=== PATIENT | male | born 1975 | race Caucasian/White ===

== ENCOUNTER 2021-08-25 12:29 | Emergency (ER) | payer OTHER, SELFPAY ==
[2021-08-25 12:34] VITALS: BP 128/72; PULSE 90; RESP 14; TEMP 36.6; O2SAT 95; BMI 32.5
--- NOTE | 2021-08-25 14:37 | ED.ABDPAIN ---
HPI - Abdominal Pain General Chief Complaint: Abdominal Pain Stated Complaint: Rt Sided Abd Pain,HX Kidney Stones Time Seen by Provider: 08/25/21 14:37 Source: patient Mode of arrival: Ambulatory History of Present Illness HPI narrative: 46M daily smoker with a history of smoking and kidney stones presents with a chief complaint of 2 days of right-sided flank pain that wraps around his right side and into his right groin. He states that it has episodes of worsening pain without any obvious provocation or palliation. He denies any nausea, vomiting or diarrhea. He denies any urinary complaints such as dysuria, frequency, urgency or hematuria. He states this feels similar to prior kidney stones. Related Data Previous Rx's Medication Instructions Recorded hydrocodone 5 mg-acetaminophen 325 1 tab PO Q4-6H PRN #10 tab 08/25/21 mg tablet ketorolac 10 mg tablet 10 mg PO Q6H PRN #14 tab 08/25/21 ondansetron 4 mg disintegrating 4 mg PO TID-QID PRN #10 tab 08/25/21 tablet tamsulosin 0.4 mg capsule (Flomax) 0.4 mg PO DAILY #10 cap 08/25/21 Allergies Allergy/AdvReac Type Severity Reaction Status Date / Time No Known Drug Allergies Allergy Verified 08/25/21 12:34 Review of Systems Review of Systems Narrative: GENERAL: Denies chills, fatigue, malaise, fever, sweats. HEENT: Denies sinus pain, ear pain, sore throat, difficulty swallowing, dizziness. RESPIRATORY: Denies dyspnea, cough, wheezing, hemoptysis, sputum. CARDIOVASCULAR: Denies chest pain, palpitations, orthopnea, edema, GASTROINTESTINAL: Denies nausea, vomiting, abdominal pain, diarrhea, constipation, melena. : See HPI MUSCULOSKELETAL: denies weakness, joint pain, or bony pain SKIN: Denies rash, skin lesions, or other NEUROLOGIC: Denies weakness, headache, numbness, change in speech, confusion, seizures, incoordination. PSYCHIATRIC: No concerning psychosocial issues. 12 point review of systems is negative except for those stated above Patient History Social History Smoking Status: Current every day smoker Smoking Status: Current every day smoker alcohol intake frequency: holidays/special occasions only Substance Use Type: does not use Exam Narrative Exam Narrative: GENERAL: [46 year old patient appears stated age. Well-developed patient, in mild distress. HEAD: Atraumatic. Normocephalic. EYES: Pupils equal round and reactive. Extraocular motions intact. No scleral icterus. No injection or drainage. ENT: Nose without bleeding, purulent drainage. Throat without erythema, tonsillar hypertrophy or exudate. Airway patent. NECK: Trachea midline. Non tender CARDIOVASCULAR: Regular rate and rhythm without murmurs, gallops, or rubs. RESPIRATORY: Clear to auscultation. Breath sounds equal bilaterally. No wheezes, rales, or rhonchi. GASTROINTESTINAL: Abdomen soft, non-tender, nondistended. EXTREMITIES: No edema or joint tenderness. BACK: Nontender without deformity or crepitance. No flank tenderness. NEURO: AOx3. SKIN: No rash or erythema of visible areas Initial Vital Signs Initial Vital Signs: Vital Signs Temperature 97.8 F 08/25/21 12:34 Pulse Rate 90 08/25/21 12:34 Respiratory Rate 14 08/25/21 12:34 Blood Pressure 128/72 08/25/21 12:34 Pulse Oximetry 95 08/25/21 12:34 Course Orders Ordered: ED Orders 08/25/21 14:43 BMP [Basic Metabolic Panel] Stat CBC Auto Diff [Complete Blood Count AUTO DIFF] Stat Sodium Chloride (Normal Saline 0.9%) 1,000 mls @ 1,000 mls/hr IV BOLUS ONE Stop: 08/25/21 16:11 Last Admin: 08/25/21 15:20 Dose: 1,000 mls/hr Documented by: VICTORIANO Discontinued Medications Ketorolac Tromethamine (Ketorolac 30 Mg/Ml Vial) 15 mg IV NOW ONE Stop: 08/25/21 15:13 Last Admin: 08/25/21 15:20 Dose: 15 mg Documented by: VICTORIANO Vital Signs Vital signs: Vital Signs - 8 hr 08/25/21 12:34 Temperature 97.8 F Pulse Rate 90 Respiratory Rate 14 Blood Pressure 128/72 Pulse Oximetry 95 MDM - Abdominal Pain Lab Data Result diagrams: 08/25/21 14:43 08/25/21 14:43 Labs: Lab Results 08/25/21 08/25/21 Range/Units 14:43 14:43 WBC 14.9 H (4.5-11.0) X10^3/uL RBC 5.00 (4.5-5.9) X10^6/uL Hgb 15.0 (13.5-17.5) g/dL Hct 43.8 (41-53) % MCV 87.6 (80-100) fL MCH 30.0 (26-34) PG MCHC 34.3 (30-36) % RDW 13.4 (11.6-14.8) % Plt Count 311 (150-400) X10^3/uL Neut % (Auto) 60.1 (50-75) % Lymph % (Auto) 29.9 (25-40) % [place] % (Auto) 6.3 (3-14) % Eos % (Auto) 2.6 (2-4) % Baso % (Auto) 1.1 (0-2) % Neut # (Auto) 9000 H (7607-4938) /uL Lymph # (Auto) 4400 (8086-5647) /uL [place] # (Auto) 900 (0-900) /uL Eos # (Auto) 400 (0-450) /uL Baso # (Auto) 200 H (0-100) /uL Sodium 139 (137-145) mmol/L Potassium 4.4 (3.4-5.1) mmol/L Chloride 107 (98-107) mmol/L Carbon Dioxide 26 (22-32) mmol/L BUN 11 (9-20) mg/dL Creatinine 0.98 (0.66-1.25) mg/dL Estimated GFR > 60.0 (>60) mL/min BUN/Creatinine Ratio 11.2 (6-22) Glucose 103 H (70-100) mg/dL Calcium 9.6 (8.4-10.2) mg/dL Point of care testing: Urine Dip Bedside Urine Glucose Negative Bedside Urine Bilirubin - Negative Bedside Urine Ketone - Negative Urine Specific [place] 1.030 Bedside Urine Occult Blood - Negative Bedside Urine pH 6.0 Bedside Urine Protein - Negative Bedside Urine Urobilinogen +/- 1mg Bedside Urine Nitrite - Negative Bedside Urine Leukocytes - Negative Esterase MDM Narrative Medical decision making narrative: Patient with reassuring history and physical exam. He has a significant improvement in symptoms with above-stated therapies. Urine shows no sign of infection. Patient had a sudden onset colicky type right flank pain consistent with what prior kidney stones of felt like. He has no reproducible pain, specifically non in the right upper quadrant or right lower quadrant. Other diagnoses such as gallbladder disease and appendicitis considered but thought less likely given the lack of reproducibility, nausea, vomiting and near complete resolution of symptoms with above-stated therapies. Patient given return precautions and questions have been answered to his apparent satisfaction Discharge Plan Departure Patient Disposition: Home Clinical Impression: Acute flank pain Instructions: DI for Kidney Stones Activity Restrictions/Additional Instructions: *You have been diagnosed with [right flank pain, most consistent with kidney stone. Your response to therapies, history, physical exam and labs are very reassuring. There is no indication for imaging today, nor any indication of the need for antibiotics. *What to do: *Please continue to take your regular medications as directed. [x ] New medication prescriptions sent to your pharmacy: [ [facility] in [place]] [ ] New medication written as a paper prescription [ ] No new medications given *Please follow up with your primary care provider in 2-3 days, call for an appointment. Let them know you were seen in the Emergency Department and that we ask that you be seen in follow up. We will electronically transmit a record of today's note if your PCP is in our system *If you do not have a primary care provider please contact the [facility] Resource line at [phone]. They will ask some questions about your medical history and help get you set up with a doctor in the community. *Return to Emergency Department if you should have any new, worsening or concerning symptoms, such as [fever greater than 101 F, shaking chills, worsening pain, persistent vomiting or other bothersome symptoms] Prescriptions: New hydrocodone-acetaminophen 5-325 mg tablet 1 tab PO Q4-6H PRN (Reason: pain) Qty: 10 0RF ketorolac 10 mg tablet 10 mg PO Q6H PRN (Reason: pain) Qty: 14 0RF tamsulosin [Flomax] 0.4 mg capsule 0.4 mg PO DAILY Qty: 10 0RF ondansetron 4 mg tablet,disintegrating 4 mg PO TID-QID PRN (Reason: nausea and vomiting) Qty: 10 0RF
[2021-08-25] MEDS: SODIUM CHLORIDE 0.9% 1,000 ML 1000 ML IV (15:20)
[2021-08-25] MEDS: KETOROLAC 30 MG/ML VIAL 15 MG IV (15:20)
[2021-08-25 15:43] LABS: Add Manual Diff / Slide Review NO; Basophils Absolute Auto 200 /uL (0-100); Basophils Percent Auto 1.1 % (0-2); Eosinophils Absolute Auto 400 /uL (0-450); Eosinophils Percent Auto 2.6 % (2-4); Hematocrit 43.8 % (41-53); Lymphocytes Absolute Auto 4400 /uL (1100-4500); Lymphocytes Percent Auto 29.9 % (25-40); Mean Corpuscular HGB Conc 34.3 % (30-36); Mean Corpuscular Volume 87.6 fL (80-100); Monocytes Absolute Auto 900 /uL (0-900); Monocytes Percent Auto 6.3 % (3-14); Neutrophils Absolute Auto 9000 /uL (1500-7000); Neutrophils Percent Auto 60.1 % (50-75); Platelet Count 311 X10^3/uL (150-400); Red Cell Distribution Width 13.4 % (11.6-14.8); White Blood Cell Count 14.9 X10^3/uL (4.5-11.0)
[2021-08-25 15:48] LABS: BUN Creatinine Ratio 11.2 (6-22); Blood Urea Nitrogen 11 mg/dL (9-20); Calcium 9.6 mg/dL (8.4-10.2); Carbon Dioxide 26 mmol/L (22-32); Chloride 107 mmol/L (98-107); Estimated Glomerular Filt Rate > 60.0 mL/min (>60); Glucose 103 mg/dL (70-100); HEMOLYSIS < 15 (0-50); Potassium 4.4 mmol/L (3.4-5.1); Sodium 139 mmol/L (137-145)
[2021-08-25 16:05] VITALS: BP 116/74; PULSE 74; RESP 16; O2SAT 98
== END 2021-08-25 16:07 | disposition home or self-care (01) ==
PROVIDERS: Emergency Provider Emergency Medicine
DX: R10.9 Unspecified abdominal pain (principal); F17.200 Nicotine dependence, unspecified, uncomplicated
CPT/HCPCS: 80048; 81003; 85025; 96374; 99283; 99284; J1885

== ENCOUNTER → 2023-02-28 07:39 | Outpatient (CLI) | payer OTHER, SELFPAY ==
[2023-02-28 08:34] LABS: Add Manual Diff / Slide Review NO; Basophils Absolute Auto 100 /uL (0-100); Basophils Percent Auto 0.8 % (0-2); Eosinophils Absolute Auto 300 /uL (0-450); Eosinophils Percent Auto 2.5 % (2-4); Hematocrit 42.2 % (41-53); Hemoglobin 14.7 g/dL (13.5-17.5); Lymphocytes Absolute Auto 4200 /uL (1100-4500); Lymphocytes Percent Auto 32.7 % (25-40); Mean Corpuscular HGB Conc 34.8 % (30-36); Mean Corpuscular Hemoglobin 29.8 PG (26-34); Mean Corpuscular Volume 85.8 fL (80-100); Monocytes Absolute Auto 800 /uL (0-900); Monocytes Percent Auto 6.4 % (3-14); Neutrophils Absolute Auto 7300 /uL (1500-7000); Neutrophils Percent Auto 57.6 % (50-75); Platelet Count 293 X10^3/uL (150-400); Red Blood Cell Count 4.92 X10^6/uL (4.5-5.9); Red Cell Distribution Width 13.3 % (11.6-14.8); White Blood Cell Count 12.8 X10^3/uL (4.5-11.0)
[2023-02-28 08:47] LABS: Alanine Aminotransferase 30 IU/L (<50); Albumin 4.5 g/dL (3.5-5.0); Albumin Globulin Ratio 1.7 (1.0-2.8); Alkaline Phosphatase 64 U/L (38-126); Aspartate Aminotransferase 20 IU/L (17-59); BUN Creatinine Ratio 16.5 (6-22); Bilirubin Total 0.3 mg/dL (0.2-1.3); Blood Urea Nitrogen 16 mg/dL (9-20); Calcium 9.8 mg/dL (8.4-10.2); Carbon Dioxide 23 mmol/L (22-32); Chloride 108 mmol/L (98-107); Cholesterol 255 mg/dL (140-199); Estimated Glomerular Filt Rate > 60 mL/min (>60); Globulin 2.7 g/dL (1.7-4.1); Glucose 101 mg/dL (70-100); HDL Cholesterol 35 mg/dL (40-60); HEMOLYSIS < 15 (0-50); LDL Cholesterol Calculated 148 mg/dL (<100); Potassium 4.7 mmol/L (3.4-5.1); Sodium 140 mmol/L (137-145); Total Protein 7.2 g/dL (6.3-8.2); Triglycerides 358 mg/dL (35-150)
[2023-02-28 09:08] LABS: TSH w/ Reflex to FT4 1.58 uIU/mL (0.47-4.68)
== END ==
PROVIDERS: PCP Family Medicine; Referring Provider Family Medicine; Visit Provider Family Medicine
DX: F17.200 Nicotine dependence, unspecified, uncomplicated (principal); N20.0 Calculus of kidney; Z13.1 Encounter for screening for diabetes mellitus; Z13.9 Encounter for screening, unspecified; Z13.6 Encounter for screening for cardiovascular disorders
CPT/HCPCS: 36415; 80053; 80061; 84443; 85025

== ENCOUNTER 2023-03-08 16:07 | Emergency (ER) | payer OTHER, SELFPAY ==
[2023-03-08 16:17] VITALS: BP 130/77; PULSE 72; RESP 18; TEMP 36.7; O2SAT 98; BMI 34.7
--- NOTE | 2023-03-08 16:46 | ED_ITS ---
HPI - Male Genitourinary General Chief complaint: Urogenital-Male Stated complaint: right hand side kidney pain Time Seen by Provider: 03/08/23 16:23 Source: patient Mode of arrival: Ambulatory History of Present Illness HPI Narrative: This is a 47-year-old male presents emergency department due to right kidney pain for the last couple of days. Pain increases with walking and decreases when he lays down. Reports urinary frequency. Patient denies any urinary urgency, , dysuria, hematuria, or any other concerning signs or symptoms. Does not recall any acute injuries to the area. States it feels similar to an episode he had had approximately a year ago which eventually self-resolved. Related Data Previous Rx's Medication Instructions Recorded sildenafil 100 mg tablet 100 mg PO DAILY PRN sexual 09/11/22 activity #30 tabs bupropion HCl 200 mg tablet,12 hr 200 mg PO DAILY #90 ea 02/26/23 sustained-release risperidone 1 mg tablet 1 mg PO DAILY PRN schizophrenia 02/26/23 #60 tabs risperidone 4 mg tablet 4 mg PO DAILY #90 tabs 02/26/23 nitrofurantoin 100 mg PO Q12H 5 days #10 caps 03/08/23 monohydrate/macrocrystals 100 mg capsule (Macrobid) Allergies Allergy/AdvReac Type Severity Reaction Status Date / Time Opioids - Morphine Analogues Allergy Verified 03/08/23 16:17 Review of Systems Review of Systems Narrative: GENERAL: Denies chills, fatigue, malaise, fever, sweats. HEENT: Denies sinus pain, ear pain, sore throat, difficulty swallowing, dizziness. RESPIRATORY: Denies dyspnea, cough, wheezing, hemoptysis, sputum. CARDIOVASCULAR: Denies chest pain, palpitations, orthopnea, edema, GASTROINTESTINAL: Denies nausea, vomiting, abdominal pain, diarrhea, constipation, melena. : Denies dysuria, frequency, incontinence, hematuria, urinary retention. MUSCULOSKELETAL: Right flank pain, denies weakness, joint pain, or bony pain SKIN: Denies rash, skin lesions, or other NEUROLOGIC: Denies weakness, headache, numbness, change in speech, confusion, seizures, incoordination. PSYCHIATRIC: No concerning psychosocial issues. 12 point review of systems is negative except for those stated above Patient History Medical History (Updated 03/08/23 @ 17:40 by Michael Bender PA-C) Chronic back pain Erectile dysfunction Family history of breast cancer Hematochezia Hyperlipidemia Schizophrenia Substance abuse Tinnitus Surgical History (Updated 09/26/22 @ 21:33 by Meagan Blue) Anesthesia History of surgery Family History (Updated 09/26/22 @ 21:34 by Meagan Blue) Father Parkinson's disease Mother Cancer Social History Smoking Status: Former smoker Smoking Status: Former smoker alcohol intake frequency: holidays/special occasions only Substance Use Type: does not use Exam Narrative Exam Narrative: GENERAL: Well-developed patient, in mild distress. HEAD: Atraumatic. Normocephalic. EYES: Pupils equal round and reactive. Extraocular motions intact. No scleral icterus. No injection or drainage. ENT: Nose without bleeding, purulent drainage. Throat without erythema, tonsillar hypertrophy or exudate. Airway patent. NECK: Trachea midline. Non tender CARDIOVASCULAR: Regular rate and rhythm without murmurs, gallops, or rubs. RESPIRATORY: Clear to auscultation. Breath sounds equal bilaterally. No wheezes, rales, or rhonchi. GASTROINTESTINAL: Abdomen soft, non-tender, nondistended. EXTREMITIES: No edema or joint tenderness. BACK: Nontender without deformity or crepitance. Right flank tenderness to palpation NEURO: AOx3. SKIN: No rash or erythema of visible areas Initial Vital Signs Initial Vital Signs: Vital Signs Temperature 98.1 F 03/08/23 16:17 Pulse Rate 72 03/08/23 16:17 Respiratory Rate 18 03/08/23 16:17 Blood Pressure 130/77 03/08/23 16:17 Pulse Oximetry 98 03/08/23 16:17 Oxygen Delivery Method Room Air 03/08/23 16:17 Course Orders Ordered: ED Orders 03/08/23 16:20 Urine Culture Stat Urine Microscopic Stat Vital Signs Vital signs: Vital Signs - 8 hr 03/08/23 16:17 Temperature 98.1 F Pulse Rate 72 Respiratory Rate 18 Blood Pressure 130/77 Pulse Oximetry 98 Oxygen Delivery Method Room Air MDM - Male Genitourinary Lab Data Labs: Lab Results 03/08/23 Range/Units 16:20 Urine RBC 0-1/hpf (0-5/HPF) Urine WBC 1-5/hpf (0-5/HPF) Ur Squamous Epith Cells 0-1 /hpf (0-5/HPF) Urine Bacteria Few (2-10) H (None) Ur Culture Indicated? Specimen cultured Urine Dip Bedside Urine Glucose Negative Bedside Urine Bilirubin - Negative Bedside Urine Ketone - Negative Urine Specific [place] 1.025 Bedside Urine Occult Blood - Negative Bedside Urine pH 6.0 Bedside Urine Protein - Negative Bedside Urine Leukocytes +/- 15 Esterase MDM Narrative Medical decision making narrative: MDM * differential diagnosis includes but not limited to urinary tract infection, p yelonephritis, nephrolithiasis * Prior records reviewed Patient was seen here about a year ago for right-sided abdominal pain and history of kidney stones. Patient was eventually discharged with [place], Toradol, and Flomax. * My lab interpretation: Urinalysis positive for leukocytes, will send for culture * My imaging interpretation: None obtained * Clinical Decision Rules/Scores evaluated: None * Independent discussions with: None ED Course: This is a 47-year-old male presents emergency department complaining of primarily right flank pain as well as some urinary frequency. Urinalysis c irma back positive for leuks in urine we will be sent for culture. We will treat as a simple UTI. Denies any systemic symptoms. Discussed possibility of a kidney stone as patient states he is had a history of this in the past but patient elected to attempt antibiotics rather than have a CT scan. Shared Decision Making: Discussed plan with patient who is comfortable with the plan. Social Considerations: None Disposition: Discharged home Discharge Plan Departure Patient Disposition: Home Clinical Impression: Urinary frequency Instructions: DI for Kidney Infection Activity Restrictions/Additional Instructions: Thank you for coming to the [facility] Emergency Department today. Please take the antibiotics prescribed. You may follow up with the primary care provider for further evaluation of your symptoms continue. I sent your medications to [facility] in [place]. I hope you feel better soon. Please follow up with your primary care provider within a week. If you do not have a primary care provider please contact the [facility] Resource line at [phone]. They will ask some questions about your medical history and help you get set up with a provider in the community. Prescriptions: New nitrofurantoin monohyd/m-cryst [Macrobid] 100 mg capsule 100 mg PO Q12H 5 Days Qty: 10 0RF Rx Instructions: must administer with a meal/food No Action bupropion HCl 200 mg tablet sustained-release 12 hr 200 mg PO DAILY Qty: 90 1RF risperidone 4 mg tablet 4 mg PO DAILY Qty: 90 1RF risperidone 1 mg tablet 1 mg PO DAILY PRN (Reason: schizophrenia) Qty: 60 0RF sildenafil 100 mg tablet 100 mg PO DAILY PRN (Reason: sexual activity) Qty: 30 3RF Rx Instructions: administer 30 minutes to 4 hours before activity Referrals: Jeff Weaver DO [Primary Care Provider] - Stand Alone Forms: Patient Portal/API
[2023-03-08 17:14] LABS: Bacteria Urine Few (2-10); Culture Indicated Urine Specimen Cultured; RBC Urine 0-1/HPF (0-5/HPF); Squamous Epithelial Cell Urine 0-1 /HPF (0-5/HPF); WBC Urine 1-5/HPF (0-5/HPF)
[2023-03-08 17:46] VITALS: BP 122/66; PULSE 77; RESP 16; O2SAT 95
== END 2023-03-08 17:56 | disposition home or self-care (01) ==
PROVIDERS: Emergency Provider Physician Assistant Medical; PCP Family Medicine
DX: R35.0 Frequency of micturition (principal)
CPT/HCPCS: 81003; 81015; 87086; 99282; 99283

== ENCOUNTER → 2023-05-17 07:01 | Outpatient (CLI) | payer OTHER, SELFPAY ==
[2023-05-17 08:24] LABS: Add Manual Diff / Slide Review NO; Basophils Absolute Auto 100 /uL (0-100); Basophils Percent Auto 0.8 % (0-2); Eosinophils Absolute Auto 300 /uL (0-450); Eosinophils Percent Auto 2.4 % (2-4); Hematocrit 43.1 % (41-53); Hemoglobin 14.6 g/dL (13.5-17.5); Lymphocytes Absolute Auto 3600 /uL (1100-4500); Lymphocytes Percent Auto 32.8 % (25-40); Mean Corpuscular HGB Conc 33.7 % (30-36); Mean Corpuscular Hemoglobin 29.2 PG (26-34); Mean Corpuscular Volume 86.7 fL (80-100); Monocytes Absolute Auto 600 /uL (0-900); Monocytes Percent Auto 5.8 % (3-14); Neutrophils Absolute Auto 6500 /uL (1500-7000); Neutrophils Percent Auto 58.2 % (50-75); Platelet Count 318 X10^3/uL (150-400); Red Blood Cell Count 4.98 X10^6/uL (4.5-5.9); Red Cell Distribution Width 13.5 % (11.6-14.8); White Blood Cell Count 11.1 X10^3/uL (4.5-11.0)
[2023-05-17 08:26] LABS: Hemoglobin A1C% w Est Avg Glu 5.9 % (4.0-6.0)
[2023-05-17 08:39] LABS: Reticulocyte Count, Percent 1.5 % (0.9-2.6)
[2023-05-17 08:53] LABS: Cholesterol 268 mg/dL (140-199); HDL Cholesterol 39 mg/dL (40-60); LDL Cholesterol Calculated 184 mg/dL (<100); Triglycerides 226 mg/dL (35-150)
== END ==
PROVIDERS: PCP Family Medicine; Referring Provider Family Medicine; Visit Provider Family Medicine
DX: D72.829 Elevated white blood cell count, unspecified (principal); R10.9 Unspecified abdominal pain; Z87.442 Personal history of urinary calculi; R73.03 Prediabetes
CPT/HCPCS: 36415; 80061; 83036; 85025; 85045